=== PATIENT | male | born 1990 | race Two or more races ===

== ENCOUNTER 2018-03-14 00:47 | Emergency (ER) | payer BC ==
[~2018-03-14] VITALS: Ht 175.3 cm; Wt 81.6 kg
[2018-03-14] MEDS ORDERED: TRUVADA 200 MG1 EAC1 ORAL (01:19)
[2018-03-14] MEDS ORDERED: IBUPROFEN600 MG ORAL (02:10)
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
[2018-03-14 02:20] VITALS: BP 103/64
== END 2018-03-14 02:30 | disposition home or self-care (01) ==
LOC: EMR 01:34
DX: M54.2 Cervicalgia (principal); M54.9 Dorsalgia, unspecified; V43.62XA Car passenger injured in collision with other type car in traffic accident, initial encounter; Y92.414 Local residential or business street as the place of occurrence of the external cause
CPT/HCPCS: 99283